=== PATIENT | male | born 1980 | race Caucasian/White ===

== ENCOUNTER 2022-02-05 16:32 | Emergency (ER) | payer MEDICAID, SELFPAY ==
[2022-02-05 16:46] VITALS: BP 163/108; PULSE 96; RESP 14; TEMP 36.6; O2SAT 96
--- NOTE | 2022-02-05 18:36 | ED.BACK ---
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 He took a friend's Percocet earlier but felt like did not really help. No focal numbness or weakness or tingling, no abdominal pain, no urinary symptoms. Related Data Allergies Allergy/AdvReac Type Severity Reaction Status Date / Time No Known Allergies Allergy Mild Verified 11/21/07 02:49 NKDA Allergy Mild Uncoded 11/08/07 17:37 Review of Systems Review of Systems: CONST: No fever. HEENT: No sore throat C/V: No chest pain RESP: No cough GI: No abdominal pain : No dysuria. M/S: Right low back pain SKIN: No rash. NEURO: [No headache or focal numbness or weakness] PSYCH: [No depression] Exam Narrative: EXAMINATION OF ORGAN SYSTEMS/BODY AREAS: Constitutional: Vital signs per nursing GENERAL: Slightly uncomfortable in the chair HEAD: Normal with no signs of head trauma. EYES: EOMI, conjunctiva normal ENT: Hearing grossly intact LUNGS: Nonlabored breathing. HEART: [Regular rate and rhythm] ABD: [Soft], [nontender to palpation] EXT: Normal range of motion, is able to ambulate albeit with somewhat antalgic gait BACK: No midline tenderness SKIN: [No rashes or lesions.] NEURO: [Alert and oriented x 3. No gross focal sensory or strength deficits. No saddle anesthesia] PSYCH: Normal affect Course Vital Signs Vital signs: Vital Signs Temperature 97.9 F 02/05/22 16:46 Pulse Rate 96 02/05/22 16:46 Respiratory Rate 14 02/05/22 16:46 Blood Pressure 163/108 H 02/05/22 16:46 Pulse Oximetry 96 02/05/22 16:46 Oxygen Delivery Room Air 02/05/22 16:46 Temperature 97.9 F 02/05/22 16:46 Pulse Rate 96 02/05/22 16:46 Respiratory Rate 14 02/05/22 16:46 Blood Pressure 163/108 H 02/05/22 16:46 Pulse Oximetry 96 02/05/22 16:46 Oxygen Delivery Room Air 02/05/22 16:46 MDM - Back Pain/Injury MDM Narrative Medical decision making narrative: ED COURSE AND MEDICAL DECISION MAKING: ? 41-year-old male with acute on chronic back pain. Normal motor and sensory exam. Patient able to ambulate. No evidence of acute cord compression, osteomyelitis/discitis or cauda equina without saddle anesthesia, urinary retention/incontinence, numbness/tingling in lower extremities, fever, history of IV drug use, cancer or immunosuppression. Doubt AAA or aortic dissection without severe pain/discomfort or any neurovascular deficits. [Ketorolac 15mg IM and lidocaine patch] given for symptomatic relief. At this time, I do not believe the patient requires imaging studies. Patient is ambulating without difficulty. [I discussed management of acute back pain in detail, explaining the need to remain active and the goals of pain control . Risks of using opiates were discussed with the patient.] Patient is given return precautions and instructed to come back at any point in time for worsening pain, fevers, weakness, difficulty walking, urinary or fecal incontinence. Patient expressed understanding of instructions. Discharge Plan Discharge Clinical Impression: Strain of lumbar region Patient Disposition: Home, Self-Care Condition: Stable Instructions: Antibiotic Form, Acute Low Back Pain (ED) Additional Instructions: Please follow up with the doctor in the next few days; come back sooner if your pain worsens or if you have any new numbness/weakness/tingling or issues with urinating or defecating. Prescriptions: New acetaminophen [Tylenol Extra Strength] 500 mg tablet 1,000 mg PO Q6H PRN (Reason: pain) Qty: 50 0RF methocarbamol 750 mg tablet 750 mg PO TID Qty: 30 0RF naproxen sodium [Aleve] 220 m
[2022-02-05] MEDS: LIDOCAINE 5% PATCH 1 PATCH TRANSDERM (18:57)
[2022-02-05] MEDS: KETOROLAC 30 MG/ML VIAL (*BKC) IM (18:57)
== END 2022-02-05 19:15 | disposition home or self-care (01) ==
LOC: ANHED 18:40
PROVIDERS: Emergency Provider Emergency Medicine
DX: S39.012A Strain of muscle, fascia and tendon of lower back, initial encounter (principal); X58.XXXA Exposure to other specified factors, initial encounter
CPT/HCPCS: 96372; 99283; A9270; J1885

== ENCOUNTER 2023-06-07 16:18 | Emergency (ER) | payer MEDICAID, SELFPAY ==
--- NOTE | ~2023-06-07 | US_ITS ---
EXAMINATION: US venous doppler LE RT DATE: 06/07/2023 18:54 INDICATION: Right lower limb pain. TECHNIQUE: Grayscale ultrasound images without and with compression and Doppler ultrasound images of the right lower extremity veins were obtained. COMPARISON: None. FINDINGS: The visualized portions of right common femoral vein, profunda (deep) femoral vein, femoral vein, pop liteal vein, peroneal veins, posterior tibial veins, and greater saphenous vein outflow are patent. IMPRESSION: 1. No deep venous thrombosis. Reviewed, dictated and finalized at location E. [facility]
--- NOTE | ~2023-06-07 | XR_ITS ---
EXAMINATION: XR knee RT min 4V DATE: 06/07/2023 17:16 INDICATION: Right knee injury and pain. TECHNIQUE: 4 views of right knee were obtained. COMPARISON: Right knee radiographs 05/24/2006 FINDINGS: Bone alignment is normal. No fracture. There is mild tricompartmental osteoarthritis. No kn ee joint effusion. IMPRESSION: 1. Mild right knee osteoarthritis. Reviewed, dictated and finalized at location E. [employer]
[2023-06-07 16:23] VITALS: BP 157/97; PULSE 98; RESP 20; TEMP 36.6; O2SAT 98
[2023-06-07] MEDS: ACETAMINOPHEN 500 MG TABLET 1000 MG PO (17:31)
--- NOTE | 2023-06-07 17:37 | ED.LOWEXIN ---
HPI - Extremity Injury (Lower) General Chief Complaint: Extremity Injury, Lower Stated Complaint: RLE pain x5 days Time Seen by Provider: 06/07/23 17:03 Source: patient Mode of arrival: ambulatory Limitations: no limitations History of Present Illness HPI Narrative: Patient is a 43-year-old male who presents to the ED with report of right lower extremity pain. Patient reports he 1st noticed the pain on Sunday. Complains of pain to his right posterior and lateral calf, states pain intermittently radiates up and down his posterior leg. Denies significant swelling. 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 Has been trying his friend's Percocet, ibuprofen, icy Hot without improvement. Denies numbness, tingling, focal knee pain, redness or warmth of extremity, history of blood clots. He does note he recently traveled 4 hours away from his surgery here for work. He is a smoker. Denies chest pain or shortness breath. Related Data Allergies Allergy/AdvReac Type Severity Reaction Status Date / Time No Known Allergies Allergy Mild Verified 06/07/23 17:05 Review of Systems Review of Systems: CONSTITUTIONAL: Denies fever, chills, or sweats. CARDIOVASCULAR: Denies chest pain. RESPIRATORY: Denies dyspnea. MUSCULOSKELETAL: See HPI. NEUROLOGIC: Denies headache, dizziness, numbness, or weakness. All systems reviewed & are unremarkable except as noted in HPI and below Exam Narrative: GENERAL: Appears older than stated age, obese with BMI of 36.8, non-toxic, in no acute distress. HEAD: Normocephalic, atraumatic. RESPIRATORY: Airway patent, respirations nonlabored. CARDIOVASCULAR: Regular rate and rhythm without murmurs, rubs, or gallops. Pedal pulses easily palpable. MUSCULOSKELETAL: Moves all extremities. No gross deformities. Tenderness to palpation along the right posterior lateral proximal calf, palpable muscle tension. No significant tenderness throughout right knee joint. No significant swelling appreciated of right lower extremity. No warmth or erythema of joints. Sensation intact. SKIN: Warm, dry, normal color. NEURO: A&O X3. Speech clear. Cranial nerves II-XII grossly intact. Antalgic gait. No ataxic movements. PSYCHIATRIC: Appropriate mood and affect. Normal interaction. Course Vital Signs Vital signs: Vital Signs Temperature 97.8 F 06/07/23 16:23 Pulse Rate 98 06/07/23 16:23 Respiratory Rate 20 06/07/23 16:23 Blood Pressure 157/97 H 06/07/23 16:23 Pulse Oximetry 98 06/07/23 16:23 Oxygen Delivery Room Air 06/07/23 16:23 Temperature 97.8 F 06/07/23 16:23 Pulse Rate 84 06/07/23 18:48 Respiratory Rate 18 06/07/23 18:48 Blood Pressure 175/109 H 06/07/23 18:48 Pulse Oximetry 98 06/07/23 18:48 Oxygen Delivery Room Air 06/07/23 16:23 MDM - Extremity Injury (Lower) MDM Narrative Medical decision making narrative: Patient presented to ED with several day history of right calf pain, no known injury. No history of blood clots. Vitals are stable upon arrival. Patient in no acute distress. He is neurovascularly intact on exam. Good pedal pulses. Sensation intact. Skin warm and dry. X-ray of knee was performed and without acute abnormalities. Does show mild arthritis. Venous Doppler ultrasound was obtained and negative for DVT. Discussed imaging findings with patient. Discussed likelihood of muscular injury/strain. Discussed continuing Tylenol/ibuprofen as needed for pain. Will prescribe a few muscle relaxers for home use. Recommended patient follow-up with primary care doctor for further evaluation. Given return precautions. Discharged in stable condition. Medical Records Attestation: I reviewed the patient's medical records. Imaging Data Attestation: I personally reviewed and interpreted this imaging study as follows: Radiologist's impression: ITS Impressions Knee X-Ray 06/07/23 17:18 IMPRESSION
[2023-06-07 18:48] VITALS: BP 175/109; PULSE 84; RESP 18; O2SAT 98
[2023-06-07] MEDS: KETOROLAC (*BKC) 60 MG/2 ML VIAL IM (19:30)
== END 2023-06-07 19:33 | disposition home or self-care (01) ==
PROVIDERS: Emergency Provider Physician Assistant
DX: M79.604 Pain in right leg (principal); M17.11 Unilateral primary osteoarthritis, right knee
CPT/HCPCS: 73564; 93971; 96372; 99284; A9270; J1885

== ENCOUNTER 2023-12-22 10:36 | Emergency (ER) | payer MEDICAID, SELFPAY ==
--- NOTE | ~2023-12-22 | XR_ITS ---
EXAMINATION: XR ankle RT 2V DATE: 12/22/2023 12:12 INDICATION: Right ankle pain. TECHNIQUE: 2 views of right ankle were obtained. COMPARISON: None. FINDINGS: Alignment is normal. No fracture. There is mild osteoarthritis of the midfoot. There is an enthesophyte of posterior aspect of calcaneal tuberosity. Ankle soft tissue swelling is noted. IMPRESSION: 1. No fracture. Reviewed, dictated and finalized at location A. IMPRESSION: 1. No fracture.
[2023-12-22] MEDS: IBUPROFEN 400 MG TABLET 800 MG PO (12:15)
[2023-12-22] MEDS: HYDROcodone/acetaminophen (*CRX) 5-325 MG TABLET 1 TAB PO (12:17)
[2023-12-22 12:20] VITALS: BP 148/82; PULSE 115; RESP 20; TEMP 36.8; O2SAT 97
--- NOTE | 2023-12-22 13:22 | ED.EXTPRO ---
HPI - Extremity Problem General Chief complaint: Extremity Problem,Nontraumatic Stated complaint: foot pain Time Seen by Provider: 12/22/23 11:02 History of Present Illness HPI Narrative: This is a 43-year-old male with a past medical history significant for gouty arthritis who presents to the emergency room with a chief complaint of right-sided ankle pain he states feels very similar to his previous gout flare. He has not had a flare-up in several months. He states that this feels identical to his normal flare ups presently does not take any medications for this. He normally is responsive to steroid medications. Has not tried anything at home aside from [id number] medications. Denies any trauma recent injuries. Was otherwise in his normal state of health. No neuropathy, weakness or other symptoms. Related Data Allergies Allergy/AdvReac Type Severity Reaction Status Date / Time No Known Allergies Allergy Mild Verified 06/07/23 17:05 Review of Systems Review of Systems: As reviewed above in HPI Exam Narrative: GENERAL: [Well-appearing, well-nourished, and in no acute distress.] HEAD: [Normocephalic, atraumatic.] EYES: [PERRLA and EOMI.] ENT: Nares clear, no rhinorrhea or epistaxis. Mucous membranes moist. NECK: Supple. CHEST: [Clear to auscultation. No respiratory distress.] HEART: [Regular rate and rhythm]. No murmur heard. [Normal peripheral pulses.] ABDOMEN: [Soft, nondistended], [nontender], [No rigidity or guarding] EXTREMITIES: Normal range of motion. [No edema.] Some tenderness to palpation over the right lateral malleolus, no tenderness over the posterior edge. No step-offs deformities. Able to ambulate unassisted. SKIN: Warm, dry, no rash. NEURO: [No focal deficits]. Alert and oriented [x3.] PSYCH: [Normal mood and affect.] Course Vital Signs Vital signs: Vital Signs Temperature 36.8 C 12/22/23 12:20 Pulse Rate 115 H 12/22/23 12:20 Respiratory Rate 20 12/22/23 12:20 Blood Pressure 148/82 H 12/22/23 12:20 Pulse Oximetry 97 12/22/23 12:20 Temperature 36.8 C 12/22/23 12:20 Pulse Rate 115 H 12/22/23 12:20 Respiratory Rate 20 12/22/23 12:20 Blood Pressure 148/82 H 12/22/23 12:20 Pulse Oximetry 97 12/22/23 12:20 MDM - Extremity (Nontraumatic) MDM Narrative Medical decision making narrative: This is a 43-year-old male with history of gout who presents with right-sided lateral foot pain. States feels very similar to his previous gout flare. Joint is not warm, hot or erythematous. Normal reassuring vital signs. He does appear in pain but ambulates unassisted. No evidence of trauma with full range of motion. Will obtain x-ray evidence to make sure there is no occult fractures or bony anomalies. Will treat as a gout flare at this time given symptomatic consistency and previous experiences with gout. He was given Tasley, ibuprofen and a 10 mg IM Decadron injection. Prescription will be sent to his pharmacy for Medrol Dosepak with instructions to start taking this tomorrow. Patient was agreeable to this plan of care and stable for discharge home at this time. Discharge Plan Discharge Clinical Impression: Gout attack Patient Disposition: Home, Self-Care Condition: Stable Instructions: Antibiotic Form, Gout (ED) Additional Instructions: Please take your medications as prescribed. Return with any new or worsening concerns. Follow-up with your regular doctor. Prescriptions: New ibuprofen 800 mg tablet 800 mg PO TID PRN (Reason: pain) Qty: 30 0RF acetaminophen [Tylenol Extra Strength] 500 mg tablet 1,000 mg PO TID PRN (Reason: pain) Qty: 30 0RF methylprednisolone [Medrol (Vincent)] 4 mg tablets,dose pack See Rx Instructions .ROUTE .COMPLEX Qty: 21 0RF Rx Instructions: orally per package directions No Action cyclobenzaprine 5 mg tablet 5 mg PO TID PRN (Reason: muscle spasm) Qty: 15 0RF Follow-up/Referrals: [facility]
[2023-12-22] MEDS: dexAMETHasone SOD PHOS INJ 10 MG/ML 1 ML VIAL IM (13:40)
== END 2023-12-22 13:48 | disposition home or self-care (01) ==
PROVIDERS: Emergency Provider Student in an Organized Health Care Education/Training Program
DX: M10.9 Gout, unspecified (principal)
CPT/HCPCS: 73600; 96372; 99283; A9270; J1100